=== PATIENT | female | born 1980 | race Caucasian/White ===

== ENCOUNTER → 2021-09-09 12:18 | Outpatient (CLI) | payer OTHER, MEDICAID, SELFPAY ==
[2021-09-09 12:56] LABS: Add Manual Diff / Slide Review NO; Basophils Absolute Auto 100 /uL (0-100); Basophils Percent Auto 1.1 % (0-2); Eosinophils Absolute Auto 100 /uL (0-450); Eosinophils Percent Auto 1.8 % (2-4); Hematocrit 38.6 % (36-46); Hemoglobin 13.2 g/dL (12.0-16.0); Lymphocytes Absolute Auto 1600 /uL (1100-4500); Lymphocytes Percent Auto 26.5 % (25-40); Mean Corpuscular HGB Conc 34.2 % (30-36); Mean Corpuscular Hemoglobin 30.6 PG (26-34); Mean Corpuscular Volume 89.3 fL (80-100); Monocytes Absolute Auto 400 /uL (0-900); Monocytes Percent Auto 5.8 % (3-14); Neutrophils Absolute Auto 4000 /uL (1500-7000); Neutrophils Percent Auto 64.8 % (50-75); Platelet Count 254 X10^3/uL (150-400); Red Blood Cell Count 4.32 X10^6/uL (4.0-5.2); Red Cell Distribution Width 13.7 % (11.6-14.8); White Blood Cell Count 6.2 X10^3/uL (4.5-11.0)
[2021-09-09 13:14] LABS: Alanine Aminotransferase 11 IU/L (<35); Albumin 4.2 g/dL (3.5-5.0); Albumin Globulin Ratio 1.5 (1.0-2.8); Alkaline Phosphatase 52 U/L (38-126); Aspartate Aminotransferase 22 IU/L (14-36); BUN Creatinine Ratio 17.9 (6-22); Bilirubin Total 0.4 mg/dL (0.2-1.3); Blood Urea Nitrogen 12 mg/dL (7-17); Calcium 8.7 mg/dL (8.4-10.2); Carbon Dioxide 28 mmol/L (22-32); Chloride 105 mmol/L (98-107); Cholesterol 251 mg/dL (140-199); Estimated Glomerular Filt Rate > 60 mL/min (>60); Globulin 2.8 g/dL (1.7-4.1); Glucose 99 mg/dL (70-100); HDL Cholesterol 50 mg/dL (40-60); HEMOLYSIS < 15 (0-50); LDL Cholesterol Calculated 177 mg/dL (<100); Potassium 4.1 mmol/L (3.4-5.1); Sodium 138 mmol/L (137-145); Triglycerides 119 mg/dL (35-150)
[2021-09-09 16:16] LABS: Vitamin D 25 Hydroxy (D3) 21.7 ng/mL (30.0-100.0)
== END ==
PROVIDERS: PCP Physician Assistant; Referring Provider Physician Assistant; Visit Provider Physician Assistant
DX: E55.9 Vitamin D deficiency, unspecified (principal); R63.5 Abnormal weight gain
CPT/HCPCS: 36415; 80053; 80061; 82306; 84443; 85025

== ENCOUNTER → 2021-09-18 10:08 | Outpatient (CLI) | payer OTHER, MEDICAID, SELFPAY ==
--- NOTE | 2021-09-18 | DI.US.S_ITS ---
PROCEDURE: US THYROID INDICATIONS: THYROID NODULE TECHNIQUE: Real-time scanning was performed of the thyroid gland, with image documentation. COMPARISON: None. FINDINGS: Right: Thyroid lobe measures 6.2 x 1.6 x 1.7 cm. Left: Thyroid lobe measures 6.1 x 1.9 x 1.8 cm.. Isthmus: 3.5 mm thick. Nodule number: 1 Location: Left mid thyroid Size: 0.5 x 0.4 x 0.5 cm. Composition: Solid Echogenicity: Hypoechoic Shape: wider than tall. Margins: Smooth Echogenic foci: 0 Total points: 4 ACR TI-RADS category: 4 Recommendations: No follow-up necessary based on size. Nodule number: 2 Location: Left mid/inferior thyroid Size: 2.1 x 1.2 x 1.5 cm. Composition: Predominantly cystic Echogenicity: Isoechoic and anechoic Shape: wider than tall. Margins: Smooth Echogenic foci: 0 Total points: 2 ACR TI-RADS category: 2 Recommendations: No follow-up necessary. Nodule number: 3 Location: Left inferior thyroid Size: 0.7 x 0.5 x 0.6 cm. Composition: Solid Echogenicity: Hypoechoic Shape: wider than tall. Margins: Smooth Echogenic foci: Punctate Total points: 7 ACR TI-RADS category: 5 Recommendations: Follow-up imaging Q year for 5 years. Nodule number: 4 Location: Right mid thyroid Size: 2.0 x 0.7 x 1.0 cm. Composition: Solid Echogenicity: Hypoechoic Shape: wider than tall. Margins: Smooth Echogenic foci: Punctate Total points: 7 ACR TI-RADS category: 5 Recommendations: Fine-needle aspiration. IMPRESSION: 1. Bilateral thyroid nodules as described above, with fine-needle aspiration and follow-up recommended as above . Dictated by: Adan Babcock M.D. on 09/18/2021 at 11:48 Approved by: Adan Babcock M.D. on 09/18/2021 at 16:54
== END ==
PROVIDERS: PCP Physician Assistant; Referring Provider Physician Assistant; Visit Provider Physician Assistant
DX: E04.2 Nontoxic multinodular goiter (principal)
CPT/HCPCS: 76536

== ENCOUNTER → 2021-10-01 14:00 | Outpatient (CLI) | payer OTHER, MEDICAID, SELFPAY ==
--- NOTE | 2021-10-01 | DI.MG.S_ITS ---
BILATERAL DIGITAL SCREENING MAMMOGRAM 3D/2D WITH CAD: 10/01/2021 CLINICAL: Baseline exam Routine screening. Family history of breast cancer. No prior exams were available for comparison. There are scattered fibroglandular elements in both breasts. Current study was also evaluated with a Computer Aided Detection (CAD) system. There is a 1.2 cm oval equal density mass in the right breast at 12 o'clock middle depth. No other significant masses, calcifications, or other findings are seen in either breast. IMPRESSION: INCOMPLETE: NEEDS ADDITIONAL IMAGING EVALUATION The 1.2 cm oval equal density mass in the right breast resembles a cyst or a fibroadenoma and is indeterminate. Additional views with possible ultrasound are recommended. This exam was interpreted at Station ID: [id number]. NOTE: For mammograms, a report in lay terms will be sent to the patient. Approximately 15% of breast malignancies will not be visualized mammographically. In the management of a palpable breast mass, a negative mammogram must not discourage biopsy of a clinically suspicious lesion. Electronically Signed By: Daniel carranza/geri:10/01/2021 16:01:44 letter sent: Additional Imaging Needed ACR BI-RADS Category 0: Incomplete [id number]
== END ==
PROVIDERS: PCP Physician Assistant; Referring Provider Physician Assistant; Visit Provider Physician Assistant
DX: Z12.31 Encounter for screening mammogram for malignant neoplasm of breast (principal); Z80.3 Family history of malignant neoplasm of breast
CPT/HCPCS: 77063; 77067

== ENCOUNTER 2021-10-02 08:26 | Emergency (ER) | payer OTHER, MEDICAID, SELFPAY ==
--- NOTE | 2021-10-02 08:38 | DI.CT.S_ITS ---
PROCEDURE: CT HEAD/BRAIN WO CON INDICATIONS: syncope, head injury, altered TECHNIQUE: Noncontrast 4.5 mm thick angled axial sections acquired from the foramen magnum to the vertex, with coronal and sagittal reformats. For radiation dose reduction, the following was used: automated exposure control, adjustment of mA and/or kV according to patient size. COMPARISON: None. FINDINGS: Image quality: Excellent. CSF spaces: Basal cisterns are patent. No extra-axial fluid collections. Ventricles are normal in size and shape. Brain: No midline shift. No intracranial masses or hemorrhage. Tenorio-white matter interface is normal. Skull and face: Calvarium and visualized facial bones are intact, without suspicious lesions. Sinuses: Visualized sinuses and mastoids are clear. IMPRESSION: No acute intracranial disease process. Dictated by: Imani Dumont MD, PhD on 10/02/2021 at 9:00 Approved by: Imani Dumont MD, PhD on 10/02/2021 at 9:01
--- NOTE | 2021-10-02 08:38 | DI.CT.S_ITS ---
PROCEDURE: CT CERVICAL SPINE WO CON INDICATIONS: syncope, head injury, altered TECHNIQUE: Noncontrast 3 mm thick sections acquired from the skull base to the T4 level. Sagittal and coronal reformats were then constructed. For radiation dose reduction, the following was used: automated exposure control, adjustment of mA and/or kV according to patient size. COMPARISON: [facility], , THYROID, 09/18/2021, 10:30. FINDINGS: Image quality: Excellent. Bones: No fractures or dislocations. Visualized superior ribs are intact. Spine degenerative disc disease and facet arthropathy. Soft tissues: Prevertebral soft tissues are normal in thickness. No paravertebral hematomas. No apical pneumothoraces. 1.5 centimeter hypoattenuating nodule in the left thyroid which is not significantly changed compared to prior ultrasound. IMPRESSION: No fracture. No acute osseous lesion. If symptoms and/or clinical suspicion for pathology persists, evaluation with MRI should be considered for further assessment. Dictated by: Imani Dumont MD, PhD on 10/02/2021 at 9:02 Approved by: Imani Dumont MD, PhD on 10/02/2021 at 9:07
--- NOTE | 2021-10-02 08:39 | ED_ITS ---
HPI - Syncope General Chief Complaint: Dizziness Stated Complaint: fainting spell this morning, hit head Time Seen by Provider: 10/02/21 08:30 History of Present Illness HPI narrative: 41-year-old female former smoker with history of persistently low blood pressure presents with a chief complaint of a syncopal episode this morning with associated head injury. She states that she has been in her normal state of health and felt fine when she went to bed last night and felt fine when she woke up this morning. She has had no fever chills, she denies any nausea, vomiting or diarrhea. Her last menstrual cycle was about 1 month ago and normal for her. She did start taking phentermine again a few weeks ago but otherwise denies any new medications or dietary change. She has had no nausea or vomiting, does not take blood thinners, she feels dizzy, has a headache and is a bit out of it but denies any focal neurologic findings or specific neck pain. She has no chest pain or shortness of breath. She had been seated for a bit of time and stood up and immediately felt lightheaded and then passed out, reports that she fell backwards and struck her head a cast iron stove and relatively quickly woke back up. Related Data Previous Rx's Medication Instructions Recorded clotrimazole 1 % topical cream 1 applic topical BID #90 grams 07/02/21 Allergies Allergy/AdvReac Type Severity Reaction Status Date / Time codeine AdvReac Intermediate Nausea Verified 07/02/21 12:39 Review of Systems Review of Systems Narrative: GENERAL: See HPI HEENT: Denies sinus pain, ear pain, sore throat, difficulty swallowing, dizziness. RESPIRATORY: Denies dyspnea, cough, wheezing, hemoptysis, sputum. CARDIOVASCULAR: Denies chest pain, palpitations, orthopnea, edema, GASTROINTESTINAL: Denies nausea, vomiting, abdominal pain, diarrhea, constipation, melena. : Denies dysuria, frequency, incontinence, hematuria, urinary retention. MUSCULOSKELETAL: denies weakness, joint pain, or bony pain SKIN: Denies rash, skin lesions, or other NEUROLOGIC: Denies weakness, headache, numbness, change in speech, confusion, seizures, incoordination. PSYCHIATRIC: No concerning psychosocial issues. 12 point review of systems is negative except for those stated above Patient History Social History Smoking Status: Current every day smoker Smoking Status: Former smoker Exam Narrative Exam Narrative: GENERAL: [41] year old patient appears stated age. Well-developed patient, in mild distress. GCS 14 (accurate but sluggish answers, confused?) HEAD: Very superficial abrasion on occiput, 0 evidence of repairable laceration or evidence of depressed skull fracture EYES: Pupils equal round and reactive. Extraocular motions intact. No scleral icterus. No injection or drainage. ENT: Nose without bleeding, purulent drainage. Throat without erythema, tonsillar hypertrophy or exudate. Airway patent. NECK: Trachea midline. Non tender CARDIOVASCULAR: Regular rate and rhythm without murmurs, gallops, or rubs. RESPIRATORY: Clear to auscultation. Breath sounds equal bilaterally. No wheezes, rales, or rhonchi. GASTROINTESTINAL: Abdomen soft, non-tender, nondistended. EXTREMITIES: No edema or joint tenderness. BACK: Nontender without deformity or crepitance. No flank tenderness. NEURO: AOx3. SKIN: No rash or erythema of visible areas Initial Vital Signs Initial Vital Signs: Vital Signs Temperature 98.4 F 10/02/21 09:03 Pulse Rate 88 10/02/21 09:03 Respiratory Rate 18 10/02/21 09:03 Blood Pressure 120/82 10/02/21 09:03 Pulse Oximetry 100 10/02/21 09:03 Oxygen Delivery Method 10/02/21 09:03 Course Orders Ordered: ED Orders 10/02/21 08:38 CT cervical spine wo con Stat CT head/brain wo con Stat EKG-12 Lead Stat 10/02/21 09:00 Complete Blood Count AUTO DIFF Stat Comprehensive Metabolic Panel Stat Magnesium Stat 10/02/21 10:25 Urinalysis and Microscopic Stat Discontinued Medications Sodium Chloride (Normal Saline 0.9%) 1,000 mls @ 1,000 mls/hr IV BOLUS ONE Stop: 10/02/21 09:36 Last Infusion: 10/02/21 11:26 Dose: 0 mls/hr Documented By: Admin: 10/02/21 09:45 Dose: 1,000 mls/hr Documented By: AMEENA(2) Ketorolac Tromethamine (Ketorolac 30 Mg/Ml Vial) 15 mg IV NOW ONE Stop: 10/02/21 09:08 Last Admin: 10/02/21 09:46 Dose: 15 mg Documented By: AMEENA(2) Ondansetron HCl (Ondansetron 4 Mg/2 Ml Inj) 4 mg IV NOW ONE Stop: 10/02/21 09:08 Last Admin: 10/02/21 09:46 Dose: 4 mg Documented By: AMEENA(2) Vital Signs Vital signs: Vital Signs - 8 hr 10/02/21 09:03 10/02/21 09:11 10/02/21 10:04 Temperature 98.4 F Pulse Rate 88 93 H Pulse Rate [Orthostatic Lying] 80 Pulse Rate [Orthostatic Sitting] 92 H Pulse Rate [Orthostatic Standing] 113 H Respiratory Rate 18 18 Blood Pressure 120/82 120/82 Blood Pressure [Orthostatic Lying] 111/60 Blood Pressure [Orthostatic Sitting] 110/68 Blood Pressure [Orthostatic Standing] 109/78 Pulse Oximetry 100 99 Oxygen Delivery Method Room Air Room Air 10/02/21 11:28 Temperature Pulse Rate 70 Pulse Rate [Orthostatic Lying] Pulse Rate [Orthostatic Sitting] Pulse Rate [Orthostatic Standing] Respiratory Rate 16 Blood Pressure 111/61 Blood Pressure [Orthostatic Lying] Blood Pressure [Orthostatic Sitting] Blood Pressure [Orthostatic Standing] Pulse Oximetry 99 Oxygen Delivery Method Room Air MDM - Syncope Lab Data Result diagrams: 10/02/21 09:00 10/02/21 09:00 Labs: Lab Results 10/02/21 10/02/21 10/02/21 Range/Units 09:00 09:00 10:25 WBC 5.4 (4.5-11.0) X10^3/uL RBC 4.51 (4.0-5.2) X10^6/uL Hgb 13.7 (12.0-16.0) g/dL Hct 40.5 (36-46) % MCV 89.7 (80-100) fL MCH 30.4 (26-34) PG MCHC 33.8 (30-36) % RDW 13.4 (11.6-14.8) % Plt Count 214 (150-400) X10^3/uL Neut % (Auto) 66.8 (50-75) % Lymph % (Auto) 24.0 L (25-40) % Jasper % (Auto) 6.4 (3-14) % Eos % (Auto) 1.8 L (2-4) % Baso % (Auto) 1.0 (0-2) % Neut # (Auto) 3600 (9144-3144) /uL Lymph # (Auto) 1300 (0459-2231) /uL Jasper # (Auto) 300 (0-900) /uL Eos # (Auto) 100 (0-450) /uL Baso # (Auto) 100 (0-100) /uL Sodium 138 (137-145) mmol/L Potassium 3.8 (3.4-5.1) mmol/L Chloride 106 (98-107) mmol/L Carbon Dioxide 25 (22-32) mmol/L BUN 12 (7-17) mg/dL Creatinine 0.84 (0.52-1.04) mg/dL Estimated GFR > 60 (>60) mL/min BUN/Creatinine Ratio 14.3 (6-22) Glucose 100 (70-100) mg/dL Calcium 8.7 (8.4-10.2) mg/dL Magnesium 2.2 (1.6-2.3) mg/dL Total Bilirubin 0.4 (0.2-1.3) mg/dL AST 20 (14-36) IU/L ALT 9 (<35) IU/L Alkaline Phosphatase 47 (38-126) U/L Total Protein 7.0 (6.3-8.2) g/dL Albumin 4.2 (3.5-5.0) g/dL Globulin 2.8 (1.7-4.1) g/dL Albumin/Globulin Ratio 1.5 (1.0-2.8) Urine Color Yellow Urine Appearance Clear Urine pH 6.5 (4.5-8.0) Ur Specific Josephine <=1.005 (1.000-1.035) Urine Protein Negative (Negative) Urine Glucose (UA) Negative (Negative) g/dL Urine Ketones Negative (NEGATIVE) Urine Occult Blood Negative (Negative) Urine Nitrate Negative (Negative) Urine Bilirubin Negative (NEGATIVE) Urine Urobilinogen 0.2 (0.2) E.U./dL Ur Leukocyte Esterase Negative (NEGATIVE) Urine RBC 0-1/hpf (0-5/HPF) Urine WBC 0-1/hpf (0-5/HPF) Ur Squamous Epith Cells 1-5 /hpf (0-5/HPF) Urine Bacteria Occasional (0-1) (None) Ur Culture Indicated? Cult not indicated Point of Care Testing Test Results Negative Urine Dip Bedside Urine Glucose Negative Bedside Urine Bilirubin - Negative Bedside Urine Ketone - Negative Urine Specific Josephine 1.010 Bedside Urine Occult Blood - Negative Bedside Urine pH 6.5 Bedside Urine Protein - Negative Bedside Urine Urobilinogen 0.2 Bedside Urine Nitrite - Negative Bedside Urine Leukocytes - Negative Esterase Imaging Data CT scan - head: Radiologist's Impression: [address] [address] [address] Scan Report Signed Patient: Eb Sargent MR#: [id number] : 1980 Acct:[id number] Age/Sex: 41 / F Date of Service: 10/02/21 Loc: ED Accession Number: [id number] ?? Procedure: CT head/brain wo con Ordering Provider: Wai Denis D.O. PROCEDURE:? CT HEAD/BRAIN WO CON ? INDICATIONS:? syncope, head injury, altered ? TECHNIQUE:? Noncontrast 4.5 mm thick angled axial sections acquired from the foramen magnum to the vertex, with coronal and sagittal reformats.? For radiation dose reduction, the following was used:? automated exposure control, adjustment of mA and/or kV according to patient size.? ? COMPARISON:? None. ? FINDINGS:? Image quality:? Excellent.? ? CSF spaces:? Basal cisterns are patent.? No extra-axial fluid collections.? Ventricles are normal in size and shape.? ? Brain:? No midline shift.? No intracranial masses or hemorrhage.? Tenorio-white matter interface is normal.? ? Skull and face:? Calvarium and visualized facial bones are intact, without suspicious lesions.? ? Sinuses:? Visualized sinuses and mastoids are clear.? ? IMPRESSION:? No acute intracranial disease process. ? ? Dictated by: Imani Dumont MD, PhD on 10/02/2021 at 9:00 ? ? Approved by: Imani Dumont MD, PhD on 10/02/2021 at 9:01 ? CT - cervical spine: Radiologist's Impression: Close Head CT (Signed) Imani Dumont - 10/02/[address] (Signed) Imain Dumont - 10/02/21 Mammogram Screening 10/01/21 Thyroid Ultrasound (Signed) Adan Babcock - 09/18/21 Launch?Image [address] [address] [address] Scan Report Signed Patient: Eb Sargent MR#: [id number] : 1980 Acct:[id number] Age/Sex: 41 / F Date of Service: 10/02/21 Loc: ED Accession Number: [id number] ?? Procedure: CT cervical spine wo con Ordering Provider: Wai Denis D.O. PROCEDURE:? CT CERVICAL SPINE WO CON ? INDICATIONS:? syncope, head injury, altered ? TECHNIQUE:? Noncontrast 3 mm thick sections acquired from the skull base to the T4 level.? Sagittal and coronal reformats were then constructed.? For radiation dose reduction, the following was used:? automated exposure control, adjustment of mA and/or kV according to patient size.? ? COMPARISON:? [facility], THYROID, 09/18/2021, 10:30. ? FINDINGS:? Image quality:? Excellent.? ? Bones:? No fractures or dislocations.? Visualized superior ribs are intact. Spine degenerative disc disease and facet arthropathy. ?? Soft tissues:? Prevertebral soft tissues are normal in thickness.? No parav ertebral hematomas.? No apical pneumothoraces. 1.5 centimeter hypoattenuating nodule in the left thyroid which is not significantly changed compared to prior ultrasound. ? ? IMPRESSION:? ? No fracture. No acute osseous lesion. If symptoms and/or clinical suspicion for pathology persists, evaluation with MRI should be considered for further assessment. ? ? ? Dictated by: Imani Dumont MD, PhD on 10/02/2021 at 9:02 ? ? Approved by: Imani Dumont MD, PhD on 10/02/2021 at 9:07 ? Discharge Plan Departure Patient Disposition: Home Clinical Impression: Orthostatic hypotension, Concussion Instructions: DI for Concussion, Orthostatic Hypotension Activity Restrictions/Additional Instructions: *You have been diagnosed with [syncopal episode, likely due to change in position. Also presence of moderate concussion, as we discussed your CT scan is reassuring there is no evidence of bleeding in the brain or fracture.] *What to do: *Please continue to take your regular medications as directed. [ ] New medication prescriptions sent to your pharmacy: [ ] [ ] New medication written as a paper prescription [x ] No new medications given * You have a slight concussion and will likely have a mild headache and some nausea for a few days. Avoiding highly stimulating activities and even TV or computers may be helpful in minimizing your symptoms. Avoid activities that will put you at risk for another head injury for at least a week. You can take tyle nol or motrin for headacheReturn for worsening or persistent symptoms *If you do not have a primary care provider please contact the [facility] Resource line at [phone]. They will ask some questions about your medical history and help get you set up with a doctor in the community. *Return to Emergency Department if you should have any new, worsening or concerning symptoms, such as [fever greater than 101 F, shaking chills, worsening pain, persistent vomiting or other bothersome symptoms] Prescriptions: No Action clotrimazole 1 % cream 1 applic topical BID Qty: 90 0RF Rx Instructions: Use until rash completely subsides Referrals: Deandra Boyd PA-C [Primary Care Provider] - Visit Report Forms: Patient Portal/API
[2021-10-02 09:03] VITALS: BP 120/82; PULSE 88; RESP 18; TEMP 36.9; O2SAT 100; BMI 28.0
[2021-10-02 09:07] LABS: Add Manual Diff / Slide Review NO; Basophils Absolute Auto 100 /uL (0-100); Eosinophils Absolute Auto 100 /uL (0-450); Eosinophils Percent Auto 1.8 % (2-4); Hematocrit 40.5 % (36-46); Hemoglobin 13.7 g/dL (12.0-16.0); Lymphocytes Absolute Auto 1300 /uL (1100-4500); Mean Corpuscular HGB Conc 33.8 % (30-36); Mean Corpuscular Hemoglobin 30.4 PG (26-34); Mean Corpuscular Volume 89.7 fL (80-100); Monocytes Absolute Auto 300 /uL (0-900); Monocytes Percent Auto 6.4 % (3-14); Neutrophils Absolute Auto 3600 /uL (1500-7000); Neutrophils Percent Auto 66.8 % (50-75); Platelet Count 214 X10^3/uL (150-400); Red Blood Cell Count 4.51 X10^6/uL (4.0-5.2); Red Cell Distribution Width 13.4 % (11.6-14.8); White Blood Cell Count 5.4 X10^3/uL (4.5-11.0)
[2021-10-02 09:11] VITALS: BP 120/82; PULSE 93; RESP 18; O2SAT 99
[2021-10-02 09:40] LABS: Alanine Aminotransferase 9 IU/L (<35); Albumin 4.2 g/dL (3.5-5.0); Albumin Globulin Ratio 1.5 (1.0-2.8); Alkaline Phosphatase 47 U/L (38-126); Aspartate Aminotransferase 20 IU/L (14-36); BUN Creatinine Ratio 14.3 (6-22); Bilirubin Total 0.4 mg/dL (0.2-1.3); Blood Urea Nitrogen 12 mg/dL (7-17); Calcium 8.7 mg/dL (8.4-10.2); Carbon Dioxide 25 mmol/L (22-32); Chloride 106 mmol/L (98-107); Estimated Glomerular Filt Rate > 60 mL/min (>60); Globulin 2.8 g/dL (1.7-4.1); Glucose 100 mg/dL (70-100); HEMOLYSIS < 15 (0-50); Magnesium 2.2 mg/dL (1.6-2.3); Potassium 3.8 mmol/L (3.4-5.1); Sodium 138 mmol/L (137-145)
[2021-10-02] MEDS: SODIUM CHLORIDE 0.9% 1,000 ML 1000 ML IV (09:45)
[2021-10-02] MEDS: KETOROLAC 30 MG/ML VIAL 15 MG IV (09:46)
[2021-10-02] MEDS: ONDANSETRON 4 MG/2 ML INJ IV (09:46)
[2021-10-02 10:04] VITALS: BP 109/78; BP 110/68; BP 111/60; PULSE 113; PULSE 80; PULSE 92
[2021-10-02 10:33] LABS: Appearance Urine UA CLEAR; Bilirubin Urine UA NEGATIVE (NEGATIVE); Color Urine UA YELLOW; Glucose Urine UA NEGATIVE (Negative); Ketones Urine UA NEGATIVE (NEGATIVE); Leukocyte Esterase Urine UA NEGATIVE (NEGATIVE); Nitrite Urine UA NEGATIVE (Negative); Occult Blood Urine UA NEGATIVE (Negative); Protein Urine UA NEGATIVE (Negative); Specific Gravity Urine UA <=1.005 (1.000-1.035); Urobilinogen Urine UA 0.2 E.U./dL (0.2)
[2021-10-02 10:44] LABS: RBC Urine 0-1/HPF (0-5/HPF); Squamous Epithelial Cell Urine 1-5 /HPF (0-5/HPF); WBC Urine 0-1/HPF (0-5/HPF); pH Urine UA 6.5 (4.5-8.0)
[2021-10-02 10:45] LABS: Bacteria Urine Occasional (0-1); Culture Indicated Urine Cult Not Indicated
[2021-10-02 11:28] VITALS: BP 111/61; PULSE 70; RESP 16; O2SAT 99
== END 2021-10-02 11:28 | disposition home or self-care (01) ==
PROVIDERS: Emergency Provider Emergency Medicine; PCP Physician Assistant
DX: I95.1 Orthostatic hypotension (principal); S06.0X0A Concussion without loss of consciousness, initial encounter; R42 Dizziness and giddiness
CPT/HCPCS: 36415; 70450; 72125; 80053; 81001; 81003; 81025; 83735; 85025; 93005; 93010; 96361; 96374; 96375; 99284; J1885; J2405

== ENCOUNTER → 2021-10-07 11:34 | Outpatient (CLI) | payer OTHER, MEDICAID, SELFPAY ==
--- NOTE | 2021-10-07 | DI.RAD.S_ITS ---
PROCEDURE: XR WRIST RT MIN 3V INDICATIONS: right wrist pain TECHNIQUE: 4 views of the wrist were acquired. COMPARISON: None. FINDINGS: Bones: No acute fractures or dislocations. No suspicious bony lesions. Scaphoid view: No scaphoid fracture visualized. Soft tissues: No suspicious soft tissue calcifications. IMPRESSION: No acute osseous abnormality visualized. Dictated by: Shaka Marrero M.D. on 10/07/2021 at 14:24 Approved by: Shaka Marrero M.D. on 10/07/2021 at 14:27
== END ==
PROVIDERS: PCP Physician Assistant; Referring Provider Physician Assistant; Visit Provider Physician Assistant
DX: M25.531 Pain in right wrist (principal)
CPT/HCPCS: 73110

== ENCOUNTER → 2021-10-28 07:42 | Outpatient (CLI) | payer OTHER, MEDICAID, SELFPAY ==
--- NOTE | 2021-10-28 | PATH_ITS ---
Note [facility] Accession Number: [id number] TESTS RESULT FLAG UNITS REF RANGE LAB Clinician Provided Cytology Information No. of containers..00 Previously Prepared Cytology Slide 35 Unknown Storage/container code(s) Source: LEFT THYROID NODULE DIAGNOSIS: LEFT THYROID NODULE INCONCLUSIVE. BETHESDA CATEGORY III. ATYPIA OF UNDETERMINED SIGNIFICANCE. MOLECULAR STUDIES REQUESTED ON THE PROVIDED RNA VIAL. COMMENT: Rare follicular cell groups, predominantly benign-appearing, with focal cytologic atypia. Pathologist ICD10: R89.6 Signed out by: Jayla Bolton MD, Pathologist NPI- [id number] Performed by: Lia Pearce, Reservations And Ticketing Agent ([facility]) Gross description: 30 CC, PINK, CLEAR RECIEVED: IN CYTOLYT WITH 5 ALCOHOL FIXED AND 5 QUICK STAINED SLIDES ALSO 1 RNA VIAL WAS RECEIVED. /VDU 10/29/2021 0927 Local FLAG LEGEND: L-Low Normal,H-High Normal,LL-Alert Low,HH-Alert High <-Panic Low,>-Panic High,A-Abnormal,AA-Critical Abnormal Performed at: 01 =[facility] [address], [place] [address] Alfred Cedillo MD, Performed at: 01 [facility] [address], [place], [place] [id number] MD Alfred Cedillo MD Phone: [phone]
--- NOTE | 2021-10-28 | DI.US.S_ITS ---
PROCEDURE: US FINE NEEDLE ASPIRATION INDICATIONS: NODULES TECHNIQUE: The indications, alternatives, benefits, risks, and complications of the procedure were explained to the patient. Written informed consent was obtained and placed in the chart. The thyroid region was examined sonographically and a site was chosen for ultrasound guided percutaneous sampling. The skin was prepared and draped in the usual fashion, and anesthetized with 1% lidocaine infiltrated from the skin down to the thyroid gland. Multiple passes were then performed, with contents emptied into an appropriate pathology specimen container. A bandage was applied to the area of access at completion of the study. COMPARISON: [facility], US, US THYROID, 09/18/2021, 10:30. FINDINGS: Location(s) of lesion(s) sampled: Using numbering from the prior thyroid ultrasound, Left mid-inferior lobe (nodule #2), right mid lobe (nodule #4). Union: 25 gauge hypodermic needles. A 24 g spinal needle was used for one pass of the left nodule. Number of passes: 5 for each nodule Medications: 1% lidocaine for local anaesthesia. Complications: None. IMPRESSION: 1. Ultrasound-guided thyroid nodule fine needle aspiration, with cytology results pending. Please see chart below for management recommendations based on cytology results. 2. Preliminary cytology results of the mostly cystic left nodule were consistent with fluid and debris. Given the mostly cystic appearance of the nodule without highly suspicious features, additional passes were not performed. This nodule can be followed on future follow-up exams. [facility] ReportingRecommendationsNon-diagnostic* Repeat US-guided FNA, with on-site cytology evaluation if possible. * Repeated non-diagnostic nodules without high suspicion US features: close observation vs surgical consult. * Consider surgery if nodule has high suspicion US features, grows >20% in 2 dimensions on followup, or patient has clinical risk factors for malignancy. Benign* If nodule has high suspicion US features: repeat US and FNA within 12 months. * If nodule has low to intermediate suspicion US features: repeat US at 12-24 months. If nodule grows (20% increase in at least 2 dimensions, with minimal increase of 2 mm or >50% change in volume), or development of new suspicious US features, then repeat FNA or continue followup. * If nodule has very low suspicion US features: followup US at >24 months. Atypia of undetermined significance, follicular lesion of undetermined significanceRepeat FNA, molecular testing, followup US, or surgical consult.Follicular neoplasm, suspicious for follicular neoplasmSurgical consult; also consider molecular testing. Suspicious for malignancySurgical consult.MalignantSurgical consult. Dictated by: Shaka Marrero M.D. on 10/28/2021 at 10:17 Approved by: Shaka Marrero M.D. on 10/28/2021 at 10:28
--- NOTE | 2021-10-28 | PATH_ITS ---
Note [facility] Accession Number: [id number] TESTS RESULT FLAG UNITS REF RANGE LAB Clinician Provided Cytology Information No. of containers..00 Previously Prepared Cytology Slide 35 Unknown Storage/container code(s) Source: RIGHT THYROID NODULE #4 DIAGNOSIS: RIGHT THYROID NODULE #4 NEGATIVE FOR MALIGNANT CELLS. BETHESDA CATEGORY II. SPECIMEN CONSISTS OF BENIGN FOLLICULAR CELLS, HEMOSIDERIN-LADEN MACROPHAGES, COLLOID, AND BLOOD. THIS PATTERN IS CONSISTENT WITH A COLLOID NODULE. Pathologist ICD10: 01 E04.1 Signed out by: Jayla Bolton MD, Pathologist NPI- [id number] Performed by: Lia Pearce, Human Resources Designate ([facility]) Gross description: 30 CC, RED, CLOUDY RECIEVED: IN CYTOLYT WITH 5 ALCOHOL FIXED AND 5 QUICK STAINED SLIDES ALSO 1 RNA VIAL WAS RECEIVED. /VDU 10/29/2021 09 Local FLAG LEGEND: L-Low Normal,H-High Normal,LL-Alert Low,HH-Alert High <-Panic Low,>-Panic High,A-Abnormal,AA-Critical Abnormal Performed at: 01 =[facility] [address], [place] [address] Alfred Cedillo MD, Performed at: 01 [facility] [address], [place], [place] [id number] MD Alfred Cedillo MD Phone: [phone]
== END ==
PROVIDERS: PCP Physician Assistant; Referring Provider Physician Assistant; Visit Provider Physician Assistant
DX: E04.2 Nontoxic multinodular goiter (principal)
CPT/HCPCS: 10005; 10006

== ENCOUNTER → 2021-11-11 08:48 | Outpatient (CLI) | payer OTHER, MEDICAID, SELFPAY ==
--- NOTE | 2021-11-11 | DI.MG.S_ITS ---
UNILATERAL RIGHT DIGITAL DIAGNOSTIC MAMMOGRAM 3D/2D WITH ADDITIONAL VIEWS: 11/11/2021 CLINICAL: Additional evaluation requested from prior study. Comparison is made to exam dated: 10/01/2021 mammogram - [facility]. There are scattered fibroglandular elements in right breast. There is a possible mass in the right breast at 12 o'clock middle depth. This is less prominent. No other significant masses or calcifications are seen in the breast. IMPRESSION: INCOMPLETE: NEEDS ADDITIONAL IMAGING EVALUATION Possible mass in the right breast is indeterminate. A targeted ultrasound is recommended and will immediately follow. Based on the Tyrer Cuzick model (a risk assessment model) the patient's lifetime risk is 8.7% and her 10 year risk is 1.2%. According to the ACR, ACS, and NCCN guidelines, an annual breast MRI exam along with mammogram is recommended if the patient's lifetime risk is 20% or greater. This exam was interpreted at Station ID: [id number]. NOTE: For mammograms, a report in lay terms will be sent to the patient. Approximately 15% of breast malignancies will not be visualized mammographically. In the management of a palpable breast mass, a negative mammogram must not discourage biopsy of a clinically suspicious lesion. Electronically Signed By: Alna Brown M.D. slc/:11/11/2021 09:44:32 ACR BI-RADS Category 0: Incomplete [id number]
--- NOTE | 2021-11-11 | DI.US.S_ITS ---
LIMITED ULTRASOUND OF RIGHT BREAST: 11/11/2021 CLINICAL: Patient returns today to evaluate an asymmetry in the right breast. Comparison is made to exams dated: 10/01/2021 mammogram and 11/11/2021 mammogram - [facility]. Color flow and real-time ultrasound of the right breast 11-12 o'clock region were performed. Tenorio scale images of the real-time examination were reviewed. There is a 1 cm x 1 cm x 0.6 cm oval cyst with a septated internal wall in the right breast at 12 o'clock middle depth 5 cm from the nipple. This oval cyst is anechoic. This correlates with mammography findings. Color flow imaging demonstrates that there is no vascularity present. There also is a benign 0.7 cm x 0.4 cm x 0.3 cm oval cyst in the right breast at 11 o'clock middle depth 5 cm from the nipple. This oval cyst is anechoic with posterior acoustic enhancement. This correlates as an incidental finding. Color flow imaging demonstrates that there is no vascularity present. IMPRESSION: PROBABLY BENIGN The 1 cm oval cyst in the right breast at 12 o'clock middle depth is consistent with a complicated cyst and is probably benign. The 0.7 cm oval cyst in the right breast at 11 o'clock middle depth is benign. A follow-up mammogram and an ultrasound in 6 months is recommended to demonstrate stability. Exam findings were conveyed to the patient. This exam was interpreted at Station ID: [id number]. Electronically Signed By: Alan Brown M.D. slc/:11/11/2021 09:52:00 letter sent: Followup Recommended Ultrasound BI-RADS: 3 Probably benign
== END ==
PROVIDERS: PCP Physician Assistant; Referring Provider Physician Assistant; Visit Provider Physician Assistant
DX: R92.2 Inconclusive mammogram (principal); N60.01 Solitary cyst of right breast
CPT/HCPCS: 76642; 77065; G0279

== ENCOUNTER 2021-11-24 08:32 | Emergency (ER) | payer OTHER, MEDICAID, SELFPAY ==
[2021-11-24] VITALS (11 sets, daily range): BP systolic 102–121; BP diastolic 60–73; PULSE 72–111; RESP 15–20; TEMP 36.9; O2SAT 96–100; BMI 26.9
--- NOTE | 2021-11-24 09:35 | DI.US.S_ITS ---
PROCEDURE: US THYROID INDICATIONS: thyroid nodule, acute pain TECHNIQUE: Real-time scanning was performed of the thyroid gland, with image documentation. COMPARISON: [facility], US, US THYROID, 09/18/2021, 10:30. FINDINGS: Right: Thyroid lobe measures 6.3 x 2.2 x 1.8 cm, and is homogeneous in echotexture. Slightly increased vascularity. Left: Thyroid lobe measures 5.7 x 1.8 x 2.0 cm, and is homogenous in echotexture. Isthmus: 2.9 mm thick. Nodule number: Location: Left mid Size: 5 x 4 x 4 mm, previously 5 x 5 x 4 mm. Composition: Solid Echogenicity: Hypoechoic Shape: Wider than tall Margins: Smooth Echogenic foci: None Total points: 4 ACR TI-RADS category: 4 Nodule number: 2 Location: Left mid thyroid lobe Size: 2.0 x 1.5 x 1.5 cm, previously 2.1 x 1.5 x 1.2 cm Composition: Predominantly cystic Echogenicity: Anechoic to isoechoic Shape: Wider than tall Margins: Smooth Echogenic foci: None Total points: 1 ACR TI-RADS category: 1 Nodule number: 3 Location: Left inferior and lateral thyroid lobe Size: 8 x 7 x 6 mm, previously 7 x 6 x 5 mm. Composition: Solid Echogenicity: Hypoechoic Shape: Wider than tall Margins: Smooth Echogenic foci: None Total points: 4 ACR TI-RADS category: 4 Nodule number: 4 Location: Right thyroid lobe superior to mid Size: 1.9 x 0.9 x 0.8 cm, previously 2.1 x 1.0 x 0.7 cm. Composition: Solid Echogenicity: Hypoechoic Shape: wider than tall Margins: Smooth Echogenic foci: Punctate Total points: 7 ACR TI-RADS category: 5 IMPRESSION: Slightly increased vascularity of the right thyroid lobe may represent inflammation from recent procedure versus thyroiditis. Multiple thyroid nodules as above. Right thyroid lobe nodule meets criteria for biopsy. This was reportedly done. Recommend correlation with results. ACR TI-RADS definitions and recommendations: TI-RADS 1 (benign): 0 points. FNA not needed. TI-RADS 2 (not suspicious): 2 points. FNA not needed. TI-RADS 3 (mildly suspicious): 3 points. * FNA if 2.5 cm or larger, follow up if 1.5 cm or larger (at 1, 3, and 5 years). TI-RADS 4 (moderately suspicious): 4-6 points. * FNA if 1.5 cm or larger, follow up if 1 cm or larger (at 1, 2, 3, and 5 years). TI-RADS 5 (highly suspicious): 7 points or more. * FNA if 1 cm or larger, follow up if 0.5 cm or larger (every year for 5 years). Dictated by: Ruben Martin D.O. on 11/24/2021 at 10:12 Approved by: Ruben Martin D.O. on 11/24/2021 at 10:21
--- NOTE | 2021-11-24 09:37 | ED.HA ---
HPI - Headache General Chief Complaint: Headache Stated Complaint: shaking, head & ear pain, thyroid surgery on 01/07 Time Seen by Provider: 11/24/21 08:40 Mode of arrival: Ambulatory History of Present Illness HPI Narrative: This 41-year-old woman comes to the ER today because of left neck and ear pain. She has been treated for thyroid nodules for some time including a fine-needle aspirate in the middle of October. She says since the FNA she has had much worse left neck pain and also this pain radiates to her left ear and is severe and intolerable. She says the pain is not improved with Tylenol. She says she was told by the surgeon who has a planned thyroidectomy for early December to not take NSAIDs. No definitive thyroid diagnosis is yet made. She does not take thyroid hormone supplementation. She says she has some endometrial polyps and she also has some chronic back pain. She vapes nicotine. No fever or chills, no nausea or vomiting. Related Data Home Medications Medication Instructions Recorded Confirmed cholecalciferol (vitamin D3) 1,250 1,250 mcg PO QWEEK 11/12/21 11/21/21 mcg (50,000 unit) capsule phentermine 37.5 mg capsule 37.5 mg PO DAILY 11/12/21 11/21/21 Previous Rx's Medication Instructions Recorded fluconazole 150 mg tablet 150 mg PO ONCE #1 tab 11/12/21 (Diflucan) Allergies Allergy/AdvReac Type Severity Reaction Status Date / Time codeine AdvReac Intermediate Nausea Verified 11/21/21 09:15 Review of Systems Review of Systems Narrative: Complete review of systems is negative other than as noted above Patient History Medical History Abnormal Pap smear of cervix (~2001) Chicken pox (~1986) COVID-19 (~2021) Foot pain (~1999) Low blood pressure Menorrhagia (~2020) Ovarian cyst (~2001) Shoulder pain (~1999) Surgical History Anesthesia History of dilatation and curettage S/P wisdom tooth extraction Status post section Family History Father Skin cancer Prostate cancer Sister Mental health problem Grandfather Cancer Grandmother Cancer Grandfather Cancer Diabetes mellitus Grandmother Mental health problem Social History Smoking Status: Current every day smoker Smoking Status: Current every day smoker tobacco type: vaping alcohol intake frequency: other Substance Use Type: does not use Exam Narrative Exam Narrative: GENERAL: Alert, cooperative and in no distress. HEAD: Atraumatic. Normocephalic. EYES: Sclera are clear without icterus. Extraocular movements are full. ENT: No rhinorrhea. Oropharynx is moist. Mouth exam is benign. No palpable thyroid nodule. To visual inspection the left side of the neck seems slightly more prominent. NECK: Supple. Full range of motion. CARDIOVASCULAR: Normal rate and rhythm without murmur gallop or rub. RESPIRATORY: Clear to auscultation. Breath sounds equal bilaterally. No wheezes, rales, or rhonchi. GASTROINTESTINAL: Abdomen soft, non-tender, nondistended. EXTREMITIES: No edema, full range of motion. No obvious trauma. BACK: Normal inspection, no CVA tenderness. NEURO: Nonfocal examination, normal speech, normal gait. SKIN: No rash or erythema of visible areas PSYCH: Normally oriented. Normal range of affect. Appropriate behavior Initial Vital Signs Initial Vital Signs: Vital Signs Temperature 98.5 F 11/24/21 08:32 Pulse Rate 103 H 11/24/21 08:32 Respiratory Rate 18 11/24/21 08:32 Blood Pressure 121/73 11/24/21 08:32 Pulse Oximetry 96 11/24/21 08:32 Oxygen Delivery Method 11/24/21 08:32 Course Course Course Narrative: Neck pain with known thyroid nodules and scheduled elective thyroidectomy coming up in a few weeks. FNA done about 3 weeks ago. She had trauma to the head and neck about [address] imaging at that time. Will do evaluation for her tachycardia with TSH and basic labs, we will also do IV hydration and Toradol. Will get an ultrasound today. Orders Ordered: ED Orders 11/24/21 09:35 US thyroid Stat 11/24/21 09:50 CBC Auto Diff [Complete Blood Count AUTO DIFF] Stat CMP [Comprehensive Metabolic Panel] Stat TSH [Thyroid Stimulating Hormone] Stat Discontinued Medications Sodium Chloride (Normal Saline 0.9%) 1,000 mls @ 1,000 mls/hr IV BOLUS ONE Stop: 11/24/21 10:34 Last Infusion: 11/24/21 11:47 Dose: 0 mls/hr Documented By: Admin: 11/24/21 10:28 Dose: 1,000 mls/hr Documented By: LAKHWINDER Ketorolac Tromethamine (Ketorolac 30 Mg/Ml Vial) 15 mg IV NOW ONE Stop: 11/24/21 09:36 Last Admin: 11/24/21 10:29 Dose: 15 mg Documented By: LAKHWINDER Vital Signs Vital signs: Vital Signs - 8 hr 11/24/21 08:32 11/24/21 08:41 11/24/21 08:45 Temperature 98.5 F Pulse Rate 103 H 111 H 104 H Respiratory Rate 18 19 Blood Pressure 121/73 Pulse Oximetry 96 96 96 Oxygen Delivery Method Room Air 11/24/21 08:45 11/24/21 09:00 11/24/21 09:00 Temperature Pulse Rate 95 H Respiratory Rate 15 Blood Pressure 121/73 118/70 Pulse Oximetry 98 Oxygen Delivery Method 11/24/21 09:30 11/24/21 09:30 11/24/21 10:00 Temperature Pulse Rate 83 Respiratory Rate 18 Blood Pressure 109/69 109/65 Pulse Oximetry 98 Oxygen Delivery Method 11/24/21 10:00 11/24/21 10:30 11/24/21 10:30 Temperature Pulse Rate 80 80 Respiratory Rate 16 20 Blood Pressure 109/66 Pulse Oximetry 99 100 Oxygen Delivery Method 11/24/21 11:00 Temperature Pulse Rate 72 Respiratory Rate 18 Blood Pressure Pulse Oximetry 100 Oxygen Delivery Method MDM - Headache Lab Data Result diagrams: 11/24/21 09:50 11/24/21 09:50 Labs: Lab Results 11/24/21 11/24/21 11/24/21 Range/Units 09:50 09:50 09:50 WBC 6.5 (4.5-11.0) X10^3/uL RBC 4.22 (4.0-5.2) X10^6/uL Hgb 12.9 (12.0-16.0) g/dL Hct 37.7 (36-46) % MCV 89.3 (80-100) fL MCH 30.5 (26-34) PG MCHC 34.2 (30-36) % RDW 14.0 (11.6-14.8) % Plt Count 242 (150-400) X10^3/uL Neut % (Auto) 71.7 (50-75) % Lymph % (Auto) 20.3 L (25-40) % [place] % (Auto) 5.6 (3-14) % Eos % (Auto) 1.7 L (2-4) % Baso % (Auto) 0.7 (0-2) % Neut # (Auto) 4700 (3167-5491) /uL Lymph # (Auto) 1300 (1599-7499) /uL [place] # (Auto) 400 (0-900) /uL Eos # (Auto) 100 (0-450) /uL Baso # (Auto) 0 (0-100) /uL Sodium 138 (137-145) mmol/L Potassium 3.7 (3.4-5.1) mmol/L Chloride 107 (98-107) mmol/L Carbon Dioxide 28 (22-32) mmol/L BUN 11 (7-17) mg/dL Creatinine 0.69 (0.52-1.04) mg/dL Estimated GFR > 60 (>60) mL/min BUN/Creatinine Ratio 15.9 (6-22) Glucose 98 (70-100) mg/dL Calcium 8.6 (8.4-10.2) mg/dL Total Bilirubin 0.4 (0.2-1.3) mg/dL AST 14 (14-36) IU/L ALT 9 (<35) IU/L Alkaline Phosphatase 42 (38-126) U/L Total Protein 6.3 (6.3-8.2) g/dL Albumin 3.8 (3.5-5.0) g/dL Globulin 2.5 (1.7-4.1) g/dL Albumin/Globulin Ratio 1.5 (1.0-2.8) TSH 0.892 (0.47-4.68) uIU/mL Imaging Data US thyroid: Radiologist's Impression: IMPRESSION:? ? Slightly increased vascularity of the right thyroid lobe may represent inflammation from recent procedure versus thyroiditis. ? Multiple thyroid nodules as above.? Right thyroid lobe nodule meets criteria for biopsy.? This was reportedly done.? Recommend correlation with results. ? ? ACR TI-RADS definitions and recommendations:? TI-RADS 1 (benign): 0 points.? FNA not needed. TI-RADS 2 (not suspicious): 2 points.? FNA not needed. TI-RADS 3 (mildly suspicious): 3 points. * FNA if 2.5 cm or larger, follow up if 1.5 cm or larger (at 1, 3, and 5 years). TI-RADS 4 (moderately suspicious): 4-6 points.? * FNA if 1.5 cm or larger, follow up if 1 cm or larger (at 1, 2, 3, and 5 years).? TI-RADS 5 (highly suspicious): 7 points or more.? * FNA if 1 cm or larger, follow up if 0.5 cm or larger (every year for 5 years).? Dictated by: Ruben Martin D.O. on 11/24/2021 at 10:12 ? ? Approved by: Ruben Martin D.O. on 11/24/2021 at 10:21 ? MDM Narrative Medical decision making narrative: Patient feels somewhat better with the Toradol. Ultrasound is reassuring regarding acute abnormality. Discharge Plan Departure Patient Disposition: Home Clinical Impression: Thyroid nodule, Acute neck pain, Acute ear pain Activity Restrictions/Additional Instructions: No dangerous cause for your neck pain or ear pain is identified. The ear is completely normal on examination. I believe this is referred pain from her neck. No abscess or dangerous masses identified in the neck other than the thyroid nodules which she already knew about. For now I recommend ibuprofen 600 mg and Tylenol 1000 mg every 6 hours for pain. Plan on following up with your primary care doctor in the coming days for further assistance with pain management if needed. Follow-up for thyroid surgery as planned. The surgeon probably will when she did discontinue ibuprofen few days prior to surgery, please call their office to find out the specifics. Return to the emergency department for new or worsening symptoms such as difficulty swallowing or breathing or fever associated with neck pain Prescriptions: No Action phentermine 37.5 mg capsule 37.5 mg PO DAILY Rx Instructions: must administer 30 minutes before or 1-2 hours after breakfast cholecalciferol (vitamin D3) 1,250 mcg (50,000 unit) capsule 1,250 mcg PO QWEEK fluconazole [Diflucan] 150 mg tablet 150 mg PO ONCE Qty: 1 0RF Rx Instructions: as a single dose Referrals: Deandra Boyd PA-C [Primary Care Provider] -
[2021-11-24 09:58] LABS: Add Manual Diff / Slide Review NO; Basophils Absolute Auto 0 /uL (0-100); Basophils Percent Auto 0.7 % (0-2); Eosinophils Absolute Auto 100 /uL (0-450); Eosinophils Percent Auto 1.7 % (2-4); Hematocrit 37.7 % (36-46); Hemoglobin 12.9 g/dL (12.0-16.0); Lymphocytes Absolute Auto 1300 /uL (1100-4500); Lymphocytes Percent Auto 20.3 % (25-40); Mean Corpuscular HGB Conc 34.2 % (30-36); Mean Corpuscular Hemoglobin 30.5 PG (26-34); Mean Corpuscular Volume 89.3 fL (80-100); Monocytes Absolute Auto 400 /uL (0-900); Monocytes Percent Auto 5.6 % (3-14); Neutrophils Absolute Auto 4700 /uL (1500-7000); Neutrophils Percent Auto 71.7 % (50-75); Platelet Count 242 X10^3/uL (150-400); Red Blood Cell Count 4.22 X10^6/uL (4.0-5.2); White Blood Cell Count 6.5 X10^3/uL (4.5-11.0)
[2021-11-24 10:09] LABS: Alanine Aminotransferase 9 IU/L (<35); Albumin 3.8 g/dL (3.5-5.0); Albumin Globulin Ratio 1.5 (1.0-2.8); Alkaline Phosphatase 42 U/L (38-126); Aspartate Aminotransferase 14 IU/L (14-36); BUN Creatinine Ratio 15.9 (6-22); Bilirubin Total 0.4 mg/dL (0.2-1.3); Blood Urea Nitrogen 11 mg/dL (7-17); Calcium 8.6 mg/dL (8.4-10.2); Carbon Dioxide 28 mmol/L (22-32); Chloride 107 mmol/L (98-107); Estimated Glomerular Filt Rate > 60 mL/min (>60); Globulin 2.5 g/dL (1.7-4.1); Glucose 98 mg/dL (70-100); HEMOLYSIS < 15 (0-50); Potassium 3.7 mmol/L (3.4-5.1); Sodium 138 mmol/L (137-145); Total Protein 6.3 g/dL (6.3-8.2)
[2021-11-24] MEDS: SODIUM CHLORIDE 0.9% 1,000 ML 1000 ML IV (10:28)
[2021-11-24] MEDS: KETOROLAC 30 MG/ML VIAL 15 MG IV (10:29)
[2021-11-24 10:41] LABS: Thyroid Stimulating Hormone 0.892 uIU/mL (0.47-4.68)
== END 2021-11-24 12:42 | disposition home or self-care (01) ==
PROVIDERS: Emergency Provider Family Medicine Addiction Medicine; PCP Physician Assistant
DX: E04.1 Nontoxic single thyroid nodule (principal); M54.2 Cervicalgia; H92.02 Otalgia, left ear
CPT/HCPCS: 76536; 80053; 84443; 85025; 96361; 96374; 99283; 99284; J1885

== ENCOUNTER → 2021-12-24 10:12 | Outpatient (CLI) | payer OTHER, MEDICAID, SELFPAY ==
[2021-12-24 13:09] LABS: Free T3, Triiodothyronine Free 3.72 pg/mL (2.77-5.27); Free T4, Direct Thyroxine 1.26 ng/dL (0.78-2.19)
[2021-12-24 20:19] LABS: Follicle Stimulating Hormone 5.55 mIU/mL; Luteinizing Hormone 3.93 mIU/mL; Progesterone, Total 0.61 ng/mL
[2021-12-24 20:34] LABS: Estradiol, Total 48.3 pg/mL
[2021-12-25 05:21] LABS: Sex Hormone Binding Globulin 62.5 nmol/L (24.6-122.0); Thyroid Peroxidase Antibodies 13 IU/mL (0-34); Triiodothyronine T3 Total 125 ng/dL (71-180)
[2021-12-25 19:07] LABS: Anti Thyroglobulin Antibody <1.0 IU/mL (0.0-0.9)
[2021-12-31 23:27] LABS: Testosterone % Fr + Wkly bound 11.5 % (3.0-18.0); Testosterone Fr+Wkly bound 2.2 ng/dL (0.0-9.5); Testosterone, Total 19.5 ng/dL (.)
== END ==
PROVIDERS: PCP Family Medicine; Referring Provider Family Medicine; Visit Provider Family Medicine
DX: E28.2 Polycystic ovarian syndrome (principal); N92.0 Excessive and frequent menstruation with regular cycle; E04.1 Nontoxic single thyroid nodule
CPT/HCPCS: 36415; 82627; 82670; 83001; 83002; 84144; 84270; 84403; 84439; 84480; 84481; 86376; 86800

== ENCOUNTER → 2021-12-27 15:38 | Outpatient (CLI) | payer OTHER, MEDICAID, SELFPAY ==
[2021-12-27 16:15] LABS: COVID19 -Nasal RAPID Negative (Negative)
== END ==
PROVIDERS: PCP Family Medicine; Visit Provider Obstetrics & Gynecology
DX: Z20.822 Contact with and (suspected) exposure to COVID-19; Z01.812 Encounter for preprocedural laboratory examination
CPT/HCPCS: 87635; C9803

== ENCOUNTER 2021-12-30 06:44 | Day surgery (SDC) | payer OTHER, MEDICAID, SELFPAY ==
[2021-12-25 14:41] VITALS: BMI 27.6
[2021-12-30] VITALS (8 sets, daily range): BP systolic 100–115; BP diastolic 67–75; PULSE 72–89; RESP 16–28; TEMP 36.2–37.1; O2SAT 96–100; BMI 27.6
--- NOTE | 2021-12-30 | PATH_ITS ---
[facility] Accession Number: [id number] . 01 Material submitted: . endometrium - ENDOMETRIAL CURETTINGS . 01 Diagnosis: Endometrium, Curettings: Feature suggestive of benign endometrial polyp. Additional proliferative type endometrium. No atypical hyperplasia and no malignancy. [facility] 01/01/2022 1502 Local . 01 Electronically signed: . Paulette Moy MD, Pathologist NPI- [id number] . 01 Gross description: . ENDOMETRIAL CURETTINGS: Received in formalin are minute fragments of mucoid and hemorrhagic material measuring 0.7 x 0.7 x 0.3 cm in aggregate. Submitted in toto in 1 cassette. /DAVE 12/31/2021 0138 Local . 01 Pathologist provided ICD-10: N84.0 . 01 CPT . 139501 Specimen Comment: A courtesy copy of this report has been sent to [phone] Performed at: 01 [facility] [address] [place] [address], [place], [place] [id number] MD Alfred Cedillo MD Phone: [phone]
[2021-12-30] MEDS: LACTATED RINGERS 1,000 ML 42 ML IV (07:31)
--- NOTE | 2021-12-30 07:48 | PM.HP.1 ---
History of Present Illness History of Present Illness Date Patient Seen: 12/30/21 Time Patient Seen: 07:48 Chief complaint: HYSTEROSCOPY D&C Narrative: Patient is a 41-year-old 3 para 2 who presents for a D&C hysteroscopy and possible polypectomy due to menorrhagia. Patient History Medical History (Updated 12/25/21 @ 14:50 by Aan Thacker RN) Abnormal Pap smear of cervix (~2001) Chicken pox (~1986) COVID-19 (~04/2021) Foot pain (~1999) Low blood pressure Menorrhagia (~2020) Ovarian cyst (~2001) Shoulder pain (~1999) Surgical History Anesthesia History of dilatation and curettage S/P wisdom tooth extraction Status post section Family & Social History Family History Father Skin cancer Prostate cancer Sister Mental health problem Grandfather Cancer Grandmother Cancer Grandfather Cancer Diabetes mellitus Grandmother Mental health problem Social History: household members significant other,children Tobacco & Substance use: Tobacco type smokeless tobacco Smoking Status Former smoker alcohol intake never alcohol intake frequency other Substance Use Type does not use Meds Home Medications and Allergies Home Medications Medication Instructions Recorded Confirmed Type cholecalciferol (vitamin D3) 1,250 1,250 mcg PO QWEEK 11/12/21 12/30/21 History mcg (50,000 unit) capsule phentermine 37.5 mg capsule 37.5 mg PO DAILY 11/12/21 12/30/21 History fluticasone propionate 50 2 spray intranasal DAILY 12/30/21 12/30/21 History mcg/actuation nasal spray,suspension Allergies Allergy/AdvReac Type Severity Reaction Status Date / Time codeine AdvReac Intermediate Nausea Verified 12/30/21 07:27 Exam Vital Signs (past 8 hours): - 12/30/21 07:16 Temperature 97.6 F Pulse Rate 84 Respiratory Rate 18 Blood Pressure 100/67 Pulse Oximetry 96 Oxygen Delivery Method Room Air Oxygen Delivery Method Room Air Narrative Exam Narrative: HEENT: No thyromegaly, no anterior cervical or supraclavicular lymphadenopathy. Lungs:Clear to auscultation bilaterally, no wheezes. Cardiovascular: Regular rate and rhythm, no murmurs, rubs, or gallops. Abdomen: Well-healed Pfannenstiel scars. No hepatosplenomegaly. No masses palpable. External genitalia: Normal Vagina: Normal Cervix: Normal Bimanual exam: 8 Week size anteverted uterus. Mobile. No adnexal masses or tenderness Extremities: No edema Assessment & Plan Assessment & Plan narrative: Assessment: 41-year-old 3 para 2011 with menorrhagia that is impacting her quality of life Plan: D&C hysteroscopy with possible polypectomy The risks, benefits, and alternatives to the procedure were explained to the patient. The risks including bleeding, infection, and uterine perforation. She understands these risks and agrees to proceed. A full par Q was held and consent form was signed. COVID-19 COVID-19 status: Negative Result date/Date tested (Pos, Neg/Pending): 12/27/21 Time Spent With Patient Time with patient: less than 30 minutes Critical Care time: I spent a total of [] minutes of critical care time on this patient's care today; this time is exclusive of procedural time.
--- NOTE | 2021-12-30 07:50 | PM.PREOP ---
Pre-operative Note COVID-19 COVID-19 status: Negative Result date/Date tested (Pos, Neg/Pending): 12/27/21 Criteria for continued procedure: Deterioration of the patient's condition or overall health Interval Note History & Physical reviewed/Exam performed by Physician: Yes Changes to H&P: No H&P completed within 30 days and has changed as indicated here:: 12/30/21
--- NOTE | 2021-12-30 08:59 | PM.GYNOP.1 ---
Operative Date/Time/Diagnoses Date of procedure: 12/30/21 Time of procedure: 08:59 Pre-op diagnosis: Menorrhagia Post-op diagnosis: same Procedure & Clinicians Procedure: Procedures Operation Date: 12/30/21 07:45 Actual Procedure Side Surgeon p Hysteroscopy D&C Haley Liriano MD Indications: Menorrhagia Surgeon: Haley Liriano Anesthesia Type: General (LMA) Operative Notes Findings: 8 week size retroverted uterus Thickened endometrium throughout Both fallopian tube ostia observed Closure Type: not applicable Specimen(s): endometrial curettings Estimated blood loss (mL): 5 Blood products transfused: none Procedure in detail: After informed consent was obtained, the patient was taken to the operating room where she was placed in the dorsal supine position. After LMA general anesthesia was achieved, she was placed in the dorsal lithotomy position, and prepped and draped in the usual sterile fashion. A time-out was performed. A bivalve speculum was placed into the vagina and the anterior lip of the cervix was grasped with a single-tooth tenaculum. The cervical os was sequentially dilated to the # 8 Hegar dilator. The hysteroscope passed easily into the endometrial cavity in the retroverted uterus. Both fallopian tube ostia were observed. There were no polyps or fibroids. There was thickened endometrium throughout. The hysteroscope was removed from the uterus. Sharp curettage was performed yielding a large amount of endometrial curettings. The instruments removed from the uterus. Single-tooth tenaculum was removed from the anterior lip of the cervix. The bivalve speculum was removed from the vagina. Sponge, lap, and instrument counts were correct x2. The patient tolerated the procedure well, and was taken to PACU in stable condition. Complications: none Post-operative Condition: stable Disposition: PACU Plan for aftercare: Home after recovery
[2021-12-30] MEDS: OXYCODONE/ACETAMINOPHEN 5/325 TABLET 1 TAB PO (09:32)
--- NOTE | 2021-12-30 10:10 | SUR.OPER ---
12/30/[id number]-ilpgnud up/dressed self. iv out. vss. home instructions completed. pain tolerable. states no changes . tolerating fluids. Refused restroom. discharged to home to [facility]/car with all belongings.
== END 2021-12-30 10:11 | disposition home or self-care (01) ==
PROVIDERS: PCP Family Medicine; Referring Provider Obstetrics & Gynecology; Visit Provider Obstetrics & Gynecology
PROC: 0UDB8ZZ Extraction of Endometrium, Via Natural or Artificial Opening Endoscopic (ICD-10-PCS; CPT 58558; principal; 2021-12-30 07:45)
DX: N92.0 Excessive and frequent menstruation with regular cycle (principal); N84.0 Polyp of corpus uteri
CPT/HCPCS: 58558; 00952; 81025; J1100; J2250; J2405; J2704; J3010

== ENCOUNTER → 2022-01-14 09:20 | Outpatient (CLI) | payer OTHER, MEDICAID, SELFPAY ==
[2022-01-14 10:39] LABS: COVID19 -Nasal RAPID Negative (Negative)
== END ==
PROVIDERS: PCP Family Medicine; Visit Provider Surgery
DX: Z20.822 Contact with and (suspected) exposure to COVID-19 (principal); Z01.812 Encounter for preprocedural laboratory examination
CPT/HCPCS: 87635; C9803

== ENCOUNTER 2022-10-13 19:07 | Emergency (ER) | payer OTHER, MEDICAID, SELFPAY ==
[2022-10-13 19:12] VITALS: BP 117/64; PULSE 103; RESP 16; TEMP 36.8; O2SAT 100; BMI 24.3
--- NOTE | 2022-10-13 19:14 | DI.RAD.S_ITS ---
PROCEDURE: XR SHOULDER LT MIN 2V INDICATIONS: pain, no injury TECHNIQUE: 4 views of the shoulder were acquired. COMPARISON: None. FINDINGS: Bones: No fractures or dislocations. No suspicious bony lesions. Visualized ribs appear intact. Soft tissues: No suspicious soft tissue calcifications. IMPRESSION: No acute fracture. No osseous lesion. If symptoms and/or clinical suspicion for pathology persist, further assessment with repeat, or advanced imaging (e.g., CT, MRI, or bone scan) may be helpful for further assessment. Dictated by: Adan Babcock M.D. on 10/13/2022 at 19:47 Approved by: Adan Babcock M.D. on 10/13/2022 at 19:48
[2022-10-13 20:16] VITALS: PULSE 90
--- NOTE | 2022-10-14 05:06 | ED_ITS ---
HPI - Extremity Problem General Chief complaint: Extremity Problem,Nontraumatic Stated complaint: lt shoulder pain/feels out of place Time Seen by Provider: 10/13/22 19:11 Source: patient Mode of arrival: Ambulatory History of Present Illness HPI Narrative: 42-year-old female daily smoker states that she is been having trouble with her left shoulder for upwards of 20 years. She states that normally feels a bit numb and tingling over the lateral aspect of it and she is had MRIs and prior consultations without any significant findings. In the absence of any injury she states that she is been having significant pain in her shoulder for the past few days. She states that if she is upright it feels like it is falling out of place and symptoms seemed to improve when she lies flat. She has full range of motion but states that it hurts. She denies any numbness, tingling or weakness. She denies any head or neck pain or injury Related Data Home Medications Medication Instructions Recorded Confirmed cholecalciferol (vitamin D3) 1,250 1,250 mcg PO QWEEK 11/12/21 12/31/21 mcg (50,000 unit) capsule phentermine 37.5 mg capsule 37.5 mg PO DAILY 11/12/21 12/31/21 fluticasone propionate 50 2 spray intranasal DAILY 12/30/21 12/31/21 mcg/actuation nasal spray,suspension Previous Rx's Medication Instructions Recorded cyclobenzaprine 10 mg tablet 10 mg PO TID PRN muscle spasm #14 10/13/22 tabs hydrocodone 5 mg-acetaminophen 325 1 tab PO Q4-6H PRN pain #10 tabs 10/13/22 mg tablet Allergies Allergy/AdvReac Type Severity Reaction Status Date / Time codeine AdvReac Intermediate Nausea Verified 12/30/21 07:27 Review of Systems Review of Systems Narrative: GENERAL: Denies chills, fatigue, malaise, fever, sweats. HEENT: Denies sinus pain, ear pain, sore throat, difficulty swallowing, dizziness. RESPIRATORY: Denies dyspnea, cough, wheezing, hemoptysis, sputum. CARDIOVASCULAR: Denies chest pain, palpitations, orthopnea, edema, GASTROINTESTINAL: Denies nausea, vomiting, abdominal pain, diarrhea, constipation, melena. : Denies dysuria, frequency, incontinence, hematuria, urinary retention. MUSCULOSKELETAL: See HPI SKIN: Denies rash, skin lesions, or other NEUROLOGIC: See HPI PSYCHIATRIC: No concerning psychosocial issues. 12 point review of systems is negative except for those stated above Patient History Medical History Abnormal Pap smear of cervix (~2001) Chicken pox (~1986) COVID-19 (~04/2021) Ear pain Episode of syncope (10/02/21) Foot pain (~1999) Low blood pressure Menorrhagia (~2020) Ovarian cyst (~2001) Shoulder pain (~1999) Surgical History Anesthesia History of dilatation and curettage History of hysteroscopy (12/30/21) S/P wisdom tooth extraction Status post section Family History Father Skin cancer Prostate cancer Sister Mental health problem Grandfather Cancer Grandmother Cancer Grandfather Cancer Diabetes mellitus Grandmother Mental health problem Social History household members: significant other and children Smoking Status: Current every day smoker alcohol intake: never Smoking Status: Current every day smoker tobacco type: vaping alcohol intake frequency: other Substance Use Type: does not use Exam Narrative Exam Narrative: GEN: AOx3 and in mild distress EYES: Pupils are equal, round, and reactive to light and accommodation. Extraoccular muscles are intact bilaterally. There is no subconjunctival hemorrhage or exudate. CHEST: Lungs are clear to auscultation bilaterally and free of wheezes, rales, or rhonchi. Heart rate is regular rhythm, there are no murmurs, clicks, rubs, or gallops. There is no chest wall tenderness. ABD: Abdomen is soft and nontender. There is no guarding or rebound. Bowel sounds are normal in all 4 quadrants. There is no mass or organomegaly. EXT: No obvious deformity, full but painful range of motion of left shoulder, full strength, no measurable weakness, pulses and sensation intact SKIN: Warm, pink, and dry. No erythema or rash Initial Vital Signs Initial Vital Signs: Vital Signs Temperature 98.2 F 10/13/22 19:12 Pulse Rate 103 H 10/13/22 19:12 Respiratory Rate 16 10/13/22 19:12 Blood Pressure 117/64 10/13/22 19:12 Pulse Oximetry 100 10/13/22 19:12 Oxygen Delivery Method Room Air 10/13/22 19:12 Procedures Orthopedic Splinting/Casting Injury #1: Side: left Upper Extremity Injury Location: shoulder Upper Extremity Immobilizer: sling/shoulder immobilizer Post splinting neuro exam: intact Post splinting vascular exam: intact Placed by: Nursing MDM - Extremity (Nontraumatic) MDM Narrative Medical decision making narrative: [42] year old patient presents with shoulder pain Multiple etiologies for patient's symptoms considered including, but not limited to: [Rotator cuff injury versus dislocation versus fracture versus other] Prior Charts reviewed in our EMR Primary Historian: patient Imaging reviewed: No fracture or dislocation Patient's symptoms improved over duration of stay with above-stated therapies. Findings and discharge diagnosis discussed with patient/family followed by verbalization of understanding Return precautions discussed with patient/family whom verbalize understanding of diagnosis and plan Discharge Plan Departure Patient Disposition: Home Clinical Impression: Acute shoulder pain Instructions: DI for Shoulder Pain Activity Restrictions/Additional Instructions: *You have been diagnosed with [Shoulder Pain. Your history and physical exam are reassuring and as we discussed x-ray shows no evidence of dislocation or other abnormal finding.] *What to do: *Please continue to take your regular medications as directed. [x ] New medication prescriptions sent to your pharmacy: [[facility] ] [ ] New medication written as a paper prescription [ ] No new medications given *Please follow up with your primary care provider in 2-3 days, call for an appointment. Let them know you were seen in the Emergency Department and that we ask that you be seen in follow up. We will electronically transmit a record of today's note if your PCP is in our system * as we discussed I have included contact information for local orthopedist, it seems reasonable to follow up with them given the relative chronicity of your shoulder problems. They may talk with you about various options including injections, physical therapy, MRI, etc.. *Return to Emergency Department if you should have any new, worsening or concerning symptoms, such as [fever greater than 101 F, shaking chills, worsening pain, persistent vomiting or other bothersome symptoms] You have been prescribed a short course of narcotic medications. These are potentially dangerous and addictive medications that should be used carefully. While on these medications you cannot drive or operate heavy machinery. Additionally, you cannot sign legal documents or perform any duties such as this. Many people get constipated on narcotic medications so it would be advisable to discuss stool softeners with the pharmacist when you pharmacy picking tech your prescription. Please understand that we cannot provide further refills of narcotics or controlled substances through the ED and your pain management will need to be through your Primary Care Provider Prescriptions: New cyclobenzaprine 10 mg tablet 10 mg PO TID PRN (Reason: muscle spasm) Qty: 14 0RF hydrocodone-acetaminophen 5-325 mg tablet 1 tab PO Q4-6H PRN (Reason: pain) Qty: 10 0RF No Action phentermine 37.5 mg capsule 37.5 mg PO DAILY Rx Instructions: must administer 30 minutes before or 1-2 hours after breakfast cholecalciferol (vitamin D3) 1,250 mcg (50,000 unit) capsule 1,250 mcg PO QWEEK fluticasone propionate 50 mcg/actuation spray,suspension 2 spray INTRANASAL DAILY Patient Comments: instill 1 spray into each nostril once daily for 30 DAYS Referrals: Haily Espinosa MD [Physician] - Abbey Da Silva RN [Primary Care Provider] - Stand Alone Forms: Patient Portal/API
== END 2022-10-13 20:16 | disposition home or self-care (01) ==
PROVIDERS: Emergency Provider Emergency Medicine; PCP Nurse Practitioner Family
DX: M25.512 Pain in left shoulder (principal)
CPT/HCPCS: 73030; 99283

== ENCOUNTER 2023-10-07 12:35 | Emergency (ER) | payer OTHER, MEDICAID, SELFPAY ==
[2023-10-07 12:44] VITALS: BP 117/58; PULSE 102; RESP 15; TEMP 36.9; O2SAT 98; BMI 25.1
--- NOTE | 2023-10-07 12:51 | PC.NURSE ---
Pt states she had a bug on her left upper thigh that she thinks is still in her skin and she needs help getting it out and she said she was installing a screen door when she said it slipped and went into her left hand pointer finger. redness noted at both sites but no obvious foreign objects.
--- NOTE | 2023-10-07 12:52 | ED_ITS ---
HPI - Wound/Laceration General Chief Complaint: Wound/Laceration Stated Complaint: foreign object in leg Time Seen by Provider: 10/07/23 12:51 Source: patient Mode of arrival: Ambulatory History of Present Illness HPI narrative: 43-year-old female complains of left anterior proximal thigh skin wound, has concerns there may be organic material still left in the wound, this morning she went to the [employer] [place], and on exit had a long appearing insect of some kind imbedded in her left anterior proximal thigh, removed, she and her significant other apparently dug with tweezers trying to get a like material removed. She does not feel that this arthropod was in the shape or size of a tick. Bite was apparently not painful. She does not feel like it was a centipede. Not large enough for snake. Not in shape of spider or beetle. She requests excision of suspected retained organic material from the wound. NKDA. Last tetanus shot greater than 5 years ago. She also complains of left index finger foreign body sensation, after working with a window/door screen, seems concerned there may be some retained fibers in this area. Related Data Home Medications Medication Instructions Recorded Confirmed cholecalciferol (vitamin D3) 1,250 1,250 mcg PO QWEEK 11/12/21 12/31/21 mcg (50,000 unit) capsule phentermine 37.5 mg capsule 37.5 mg PO DAILY 11/12/21 12/31/21 fluticasone propionate 50 2 spray intranasal DAILY 12/30/21 12/31/21 mcg/actuation nasal spray,suspension Previous Rx's Medication Instructions Recorded cyclobenzaprine 10 mg tablet 10 mg PO TID PRN muscle spasm #14 10/13/22 tabs hydrocodone 5 mg-acetaminophen 325 1 tab PO Q4-6H PRN pain #10 tabs 10/13/22 mg tablet cephalexin 500 mg capsule 500 mg PO QID 7 days #28 caps 10/07/23 Allergies Allergy/AdvReac Type Severity Reaction Status Date / Time codeine AdvReac Intermediate Nausea Verified 10/07/23 12:43 Patient History Medical History Abnormal Pap smear of cervix (~2001) Chicken pox (~1986) COVID-19 (~04/2021) Ear pain Episode of syncope (10/02/21) Foot pain (~1999) Low blood pressure Menorrhagia (~2020) Ovarian cyst (~2001) Shoulder pain (~1999) Surgical History Anesthesia History of dilatation and curettage History of hysteroscopy (12/30/21) S/P wisdom tooth extraction Status post section Family History Father Skin cancer Prostate cancer Sister Mental health problem Grandfather Cancer Grandmother Cancer Grandfather Cancer Diabetes mellitus Grandmother Mental health problem Social History household members: significant other and children Smoking Status: Current every day smoker alcohol intake: never Smoking Status: Current every day smoker tobacco type: vaping alcohol intake frequency: other Substance Use Type: does not use Exam Narrative Exam Narrative: GENERAL: Well-developed patient, in mild distress. HEAD: Atraumatic. Normocephalic. EYES: Pupils equal round and reactive. Extraocular motions intact. No scleral icterus. No injection or drainage. ENT: Nose without bleeding, purulent drainage. Throat without erythema, tonsillar hypertrophy or exudate. Airway patent. NECK: Trachea midline. Non tender CARDIOVASCULAR: Regular rate and rhythm without murmurs, gallops, or rubs. RESPIRATORY: Clear to auscultation. Breath sounds equal bilaterally. No wheezes, rales, or rhonchi. GASTROINTESTINAL: Abdomen soft, non-tender, nondistended. EXTREMITIES: Left anterior proximal thigh with 1.5 cm erythematous lesion, lateral aspect small shallow ulcer, no palpable or visible foreign body material. No urticaria. Left lateral index finger with small puncture, no palpable or visible foreign body, no redness or edema to the affected digit, no lymphangitic streaking, no discharge. BACK: Nontender without deformity or crepitance. No flank tenderness. NEURO: AOx3. SKIN: No rash or erythema of visible areas Initial Vital Signs Initial Vital Signs: Vital Signs Temperature 98.5 F 10/07/23 12:44 Pulse Rate 102 H 10/07/23 12:44 Respiratory Rate 15 10/07/23 12:44 Blood Pressure 117/58 L 10/07/23 12:44 Pulse Oximetry 98 10/07/23 12:44 Oxygen Delivery Method Room Air 10/07/23 12:44 [place] [facility] [place] Procedure: Excisional biopsy left anterior proximal thigh skin lesion, per patient request, concern for retained organic material from arthropod injury. Verbal consent for procedure. Local field block 1% lidocaine with epinephrine, proximally 6 cc. Number 15 blade excisional biopsy down through skin layer, 2 fascial plane, minimal bleeding. Closed with 4-0 nylon x3 interrupted simple sutures. Minimal blood loss. Tolerated well. Specimen sent for pathology evaluation. Side (if applicable): left Location: Proximal anterior thigh skin Complications: none Course Orders Ordered: ED Orders 10/07/23 13:21 XR finger LT min 2V Stat Discontinued Medications Bacitracin (Bacitracin Oint 0.9 Gm Pckt) 1 applic TOP NOW ONE Stop: 10/07/23 13:27 Last Admin: 10/07/23 13:41 Dose: 1 applic Documented By: BELLA Cephalexin HCl (Cephalexin 250 Mg Capsule) 500 mg PO NOW ONE Stop: 10/07/23 13:26 Last Admin: 10/07/23 13:39 Dose: 500 mg Documented By: BELLA Diphtheria/Tetanus/Acell Pertussis (Tet,Diph,Pertuss(Acell),Vac/Pf 0.5 Ml Syringe) 0.5 ml IM .ONCE ONE Stop: 10/07/23 13:42 Last Admin: 10/07/23 13:42 Dose: 0.5 ml Documented By: BELLA Lidocaine/Epinephrine (Lidocaine 1% W/Epi) 4 ml INJ INTRA-OP ONE Stop: 10/07/23 13:25 Last Admin: 10/07/23 13:42 Dose: Not Given Documented By: BELLA Tetanus/Diphtheria Toxoids (Tetanus Diphtheria Toxoids 0.5 Ml Vial) 0.5 ml IM .ONCE ONE Stop: 10/07/23 13:28 Last Admin: 10/07/23 13:40 Dose: Not Given Documented By: BELLA Vital Signs Vital signs: Vital Signs - 8 hr 10/07/23 12:44 10/07/23 14:43 Temperature 98.5 F Pulse Rate 102 H 89 Respiratory Rate 15 16 Blood Pressure 117/58 L 114/66 Pulse Oximetry 98 100 Oxygen Delivery Method Room Air Room Air MDM - Wound/Laceration Imaging Data Extremity x-ray #1: Radiologist's Impression: [address] [address] XRay Report Signed Patient: Eb Sargent MR#: [id number] : 1980 Acct:[id number] Age/Sex: 43 / F Date of Service: 10/07/23 Loc: ED Accession Number: [id number] Procedure: XR finger LT min 2V Ordering Provider: Holland Benito MD PROCEDURE: XR FINGER LT MIN 2V INDICATIONS: FB sensation screen door L index TECHNIQUE: AP hand, 2 views of the 2nd finger(s) acquired. COMPARISON: None. FINDINGS: Bones: No fractures or dislocations. No suspicious bony lesions. Soft tissues: No suspicious soft tissue calcifications. No radiopaque foreign body. IMPRESSION: No radiopaque foreign body. Dictated by: Nga Dunn M.D. on 10/07/2023 at 14:32 Approved by: Nga Dunn M.D. on 10/07/2023 at 14:32 MDM Narrative Medical decision making narrative: Patient with concern for possible retained organic tissue from arthropod envenomation this morning, we discussed excisional biopsy, she would like to proceed. See separate procedure note. Tolerated well. Specimen sent to pathology. Regarding left index finger foreign body sensation while working with a screen, I could not see or palpate any foreign body, though there was tenderness the punctum site distal IP area left index finger, x-ray screening requested. No obvious foreign body seen on x-ray. It is possible to have retained foreign body material that is non radiopaque however. Tetanus update ordered. P.o. Keflex 1st dose antibiotic given in the emergency department, prescription for further oral antibiotic course of cephalexin. Wound check and pathology for review in 2 3 days with PCP advised. Consider orthopedic surgery consultation for possible retained foreign body left index finger Discharge Plan Departure Patient Disposition: Home Clinical Impression: Status post excisional biopsy, Sensation of foreign body in finger, Foreign body sensation, other site Activity Restrictions/Additional Instructions: Arthropod envenomation left anterior proximal thigh after [facility] [employer], apparently not felt to be tic like in appearance or size, not particularly painful, seems less likely a sent a paid injury, however apparently there was concern about imbedded foreign material, prompting you/family to attempt foreign body removal. Concerned there may be further organic material in the wound, requests for excisional biopsy removal of that affected tissue area. Verbal consent for procedure, local anesthesia, small Ellipta forearm skin sample jose yao around the visible wound edges, the depth of 2-3 mm, 2 soft tissue plane, no obvious foreign material residual. Specimen sent for pathology review. Wound closed with nylon sutures. Antibiotics started, prescription sent for further course of antibiotic. Wound check advised in 2-3 days with your regular provider. Also check pathology report at that time. You also had concern about foreign body sensation left index finger, possible window/door screen retained fibers/fragment, x-rays negative for any visible foreign body, consider orthopedic surgery follow up if any wound exploration indicated. Contact information provided for orthopedic surgery on-call. Check wound at the time of your thigh excisional biopsy wound check as well. Take antibiotics as directed. Return earlier to this/nearest emergency department for any change worsening symptoms or any concerns prior Prescriptions: New cephalexin 500 mg capsule 500 mg PO QID 7 Days Qty: 28 0RF No Action phentermine 37.5 mg capsule 37.5 mg PO DAILY Rx Instructions: must administer 30 minutes before or 1-2 hours after breakfast cholecalciferol (vitamin D3) 1,250 mcg (50,000 unit) capsule 1,250 mcg PO QWEEK fluticasone propionate 50 mcg/actuation spray,suspension 2 spray INTRANASAL DAILY Patient Comments: instill 1 spray into each nostril once daily for 30 DAYS cyclobenzaprine 10 mg tablet 10 mg PO TID PRN (Reason: muscle spasm) Qty: 14 0RF hydrocodone-acetaminophen 5-325 mg tablet 1 tab PO Q4-6H PRN (Reason: pain) Qty: 10 0RF Referrals: Zander Garcia MD [Physician] - Abbey Da Silva ARNP RN [Primary Care Provider] - Stand Alone Forms: Patient Portal/API
[2023-10-07] MEDS: LIDOCAINE 1% W/EPI 20 ML (13:03)
--- NOTE | 2023-10-07 13:19 | PATH_ITS ---
[facility] Accession Number: [id number] No. of containers..01 Tissue . 01 Material submitted: . thigh - L UPPER THIGH . 01 Diagnosis: L UPPER THIGH, BIOPSY: Central area with necrosis, necrotic debris, and mild acute inflammation. . Note: While nonspecific, the changes could be secondary to a prior arthropod bite. No definite arthropod body parts are identified grossly or in the initial and deeper levels examined in an effort to better define this process. Other diagnostic considerations could include local chemical or physical trauma, among others. PAS stain is negative for fungal hyphae. Clinicopathologicl correlation is advised for definitive diagnosis. MRV 10/12/2023 1615 Local . 01 Electronically signed: . Raina Pandey MD, Dermatopathologist NPI- [id number] . 01 Gross description: . Received fresh and subsequently placed in formalin, per client, with two patient identifiers and skin tissue, left upper thigh, is an unoriented ellipse of skin, 1.0 x 0.5 cm by 0.2 cm thick. There is a small defected located near one tip measuring 0.1 cm in diameter. No arthropod or object identified on the skin surface. The margin is inked blue, and the specimen is serially sectioned into four slices with no foreign object or insect identified on the cut surface. Submitted entirely as follows: . A1: Tips. A2: Remaining slices. ([id number]) /MRV 10/08/2023 1451 Local . 01 Pathologist provided ICD-10: R23.9 . 01 CPT . 028466, [id number] Performed at: [address] [address], [place], [place] [id number] MD Alfred Cedillo MD Phone: [phone]
--- NOTE | 2023-10-07 13:21 | DI.RAD.S_ITS ---
PROCEDURE: XR FINGER LT MIN 2V INDICATIONS: FB sensation screen door L index TECHNIQUE: AP hand, 2 views of the 2nd finger(s) acquired. COMPARISON: None. FINDINGS: Bones: No fractures or dislocations. No suspicious bony lesions. Soft tissues: No suspicious soft tissue calcifications. No radiopaque foreign body. IMPRESSION: No radiopaque foreign body. Dictated by: Nga Dunn M.D. on 10/07/2023 at 14:32 Approved by: Nga Dunn M.D. on 10/07/2023 at 14:32
[2023-10-07] MEDS: cephALEXin 250 MG CAPSULE 500 MG PO (13:39)
[2023-10-07] MEDS: BACITRACIN OINT 0.9 GM PCKT 1 APPLIC TOP (13:41)
[2023-10-07] MEDS: TET,DIPH,PERTUSS(ACELL),VAC/PF 0.5 ML SYRINGE IM (13:42)
[2023-10-07 14:43] VITALS: BP 114/66; PULSE 89; RESP 16; O2SAT 100
== END 2023-10-07 14:46 | disposition home or self-care (01) ==
PROVIDERS: Emergency Provider Emergency Medicine; PCP Nurse Practitioner Family
DX: R09.A9 Foreign body sensation, other site (principal); Z23 Encounter for immunization
CPT/HCPCS: 11106; 73140; 90471; 99283; 90715

== ENCOUNTER 2023-12-26 19:43 | Emergency (ER) | payer OTHER, MEDICAID, SELFPAY ==
[2023-12-26 19:44] VITALS: BP 129/58; PULSE 94; RESP 18; TEMP 36.6; O2SAT 100; BMI 23.8
== END 2023-12-26 21:19 | disposition left against medical advice (07) ==
PROVIDERS: Emergency Provider Emergency Medicine; PCP Nurse Practitioner Family
CPT/HCPCS: 99281

== ENCOUNTER 2024-03-09 07:40 | Emergency (ER) | payer OTHER, MEDICAID, SELFPAY ==
--- NOTE | 2024-03-09 07:49 | ED.EXTPRO ---
HPI - Extremity Problem General Chief complaint: Extremity Injury, Lower Stated complaint: punctured r foot, swelling Time Seen by Provider: 03/09/24 07:48 History of Present Illness HPI Narrative: Patient here with partner for complaints of right foot pain and swelling. Patient dropped a pair of tweezers 2 days ago and it injured the top of her right foot. Since then has pain redness and swelling. No fever chills. No discharge. Tetanus up-to-date, September 2023. Denies does not want a test. Denies any allergies to antibiotics. Foot and ankle exposed Related Data Home Medications Medication Instructions Recorded Confirmed cholecalciferol (vitamin D3) 1,250 1,250 mcg PO QWEEK 11/12/21 12/31/21 mcg (50,000 unit) capsule phentermine 37.5 mg capsule 37.5 mg PO DAILY 11/12/21 12/31/21 fluticasone propionate 50 2 spray intranasal DAILY 12/30/21 12/31/21 mcg/actuation nasal spray,suspension Previous Rx's Medication Instructions Recorded cyclobenzaprine 10 mg tablet 10 mg PO TID PRN muscle spasm #14 10/13/22 tabs hydrocodone 5 mg-acetaminophen 325 1 tab PO Q4-6H PRN pain #10 tabs 10/13/22 mg tablet doxycycline monohydrate 100 mg 100 mg PO BID #14 caps 03/09/24 capsule Allergies Allergy/AdvReac Type Severity Reaction Status Date / Time codeine AdvReac Intermediate Nausea Verified 12/26/23 19:44 Review of Systems Review of Systems Narrative: GENERAL: Negative chills, fatigue, malaise, fever, sweats. HEENT: Negative sinus pain, ear pain, sore throat RESPIRATORY: Negative dyspnea, cough CARDIOVASCULAR: Negative chest pain, palpitations GASTROINTESTINAL: Negative nausea, vomiting, abdominal pain : Negative dysuria, frequency, hematuria MUSCULOSKELETAL: Positive muscle or bony pain SKIN: Negative rash, skin lesions, positive skin injury NEUROLOGIC: Negative weakness, numbness ROS Unobtainable: All systems reviewed & are unremarkable except as noted in HPI and below Patient History Medical History Abnormal Pap smear of cervix (~2001) Chicken pox (~1986) COVID-19 (~04/2021) Ear pain Episode of syncope (10/02/21) Foot pain (~1999) Low blood pressure Menorrhagia (~2020) Ovarian cyst (~2001) Shoulder pain (~1999) Surgical History Anesthesia History of dilatation and curettage History of hysteroscopy (12/30/21) S/P wisdom tooth extraction Status post section Family History Father Skin cancer Prostate cancer Sister Mental health problem Grandfather Cancer Grandmother Cancer Grandfather Cancer Diabetes mellitus Grandmother Mental health problem Social History household members: significant other and children Smoking Status: Current every day smoker alcohol intake: never Smoking Status: Current every day smoker tobacco type: vaping alcohol intake frequency: other Substance Use Type: does not use Exam Narrative Exam Narrative: GENERAL: in no distress, not toxic not dyspneic HEAD: Normocephalic. EYES: Pupils equal round EXTREMITIES: No gross deformities. Examination right foot. Small puncture went to mid forefoot dorsally. There is surrounding erythema without induration no discharge. No palpable abscess. No red streaking. Foot otherwise warm soft pink. Brisk cap refills light touch intact to foot and toes. Mild tenderness to the puncture site. NEURO: AOx4. SKIN: Warm and dry PSYCH: Not anxious, is cooperative Initial Vital Signs Initial Vital Signs: Vital Signs Temperature 97.9 F 03/09/24 07:57 Pulse Rate 99 H 03/09/24 07:57 Respiratory Rate 15 03/09/24 07:57 Blood Pressure 122/71 03/09/24 07:57 Pulse Oximetry 99 03/09/24 07:57 Oxygen Delivery Method Room Air 03/09/24 07:57 Course Orders Ordered: Discontinued Medications Doxycycline Hyclate (Doxycycline Hyclate 100 Mg Tablet) 100 mg PO NOW ONE Stop: 03/09/24 07:49 Last Admin: 03/09/24 08:16 Dose: 100 mg Documented By: CAMERON Ibuprofen (Ibuprofen 400 Mg Tablet) 800 mg PO NOW ONE Stop: 03/09/24 07:49 Last Admin: 03/09/24 08:16 Dose: 800 mg Documented By: CAMERON Vital Signs Vital signs: Vital Signs - 8 hr 03/09/24 07:57 Temperature 97.9 F Pulse Rate 99 H Respiratory Rate 15 Blood Pressure 122/71 Pulse Oximetry 99 Oxygen Delivery Method Room Air [facility] - Extremity (Nontraumatic) Imaging Data Extremity x-ray #1: Radiologist's Impression: [address] [address] XRay Report Signed Patient: Eb Sargent MR#: [id number] : 1980 Acct:[id number] Age/Sex: 43 / F Date of Service: 03/09/24 Loc: ED Accession Number: [id number] Procedure: XR foot RT min 3V Ordering Provider: Theron Mendez MD PROCEDURE: XR FOOT RT MIN 3V INDICATIONS: Injury/pain/swelling TECHNIQUE: 3 views of the foot were acquired. COMPARISON: None. FINDINGS: Bones: No fractures or dislocations. Mild hallux valgus angulation of the 1st MTP with joint with medial bunion formation. No suspicious bony lesions. Soft tissues: No tibiotalar joint effusion. Achilles tendon appears normal. IMPRESSION: No acute osseous abnormality. If pain persists with conservative management, consider repeat x-ray in 10-14 days or cross-sectional imaging. Dictated by: Lan Aguero M.D. on 03/09/2024 at 8:14 Approved by: Lan Aguero M.D. on 03/09/2024 at 8:21 [facility] Narrative Medical decision making narrative: Patient here with partner for complaints of right foot pain and swelling. Patient dropped a pair of tweezers 2 days ago and it injured the top of her right foot. Since then has pain redness and swelling. No fever chills. No discharge. Tetanus up-to-date, September 2023. Denies does not want a test. Denies any allergies to antibiotics. Foot and ankle exposed After history and exam doxycycline ibuprofen x-ray right foot crutches postop shoe [facility] Medical records reviewed: No recent visit for this complaint Differential considered: Includes but not limited to cellulitis retained foreign body necrotizing fasciitis abscess Lab Test results independently reviewed as above. Pertinent findings: None indicated at this time Imaging studies independently reviewed: X-ray right foot no acute finding Consultations: None indicated Treatments: Doxycycline ibuprofen Re-evaluations: 8:40 a.m.. Updated patient results. They are reassuring. Pain is controlled. Return precautions reviewed. Not toxic at discharge. She desires discharge home. Discussion: Appropriate for discharge home exam is reassuring imaging reassuring. Antibiotics have been started. No blood work indicated. Not toxic no fever. No discharge. Pain is controlled. Return precautions reviewed and she desires discharge home. Diagnosis: Right foot puncture wound Discharge Plan Departure Patient Disposition: Home Clinical Impression: Puncture wound of foot Qualifiers: Encounter type: initial encounter Laterality: right Qualified Code(s): S91.331A - Puncture wound without foreign body, right foot, initial encounter Instructions: DI for Wound Infection Activity Restrictions/Additional Instructions: X-ray of your foot is reassuring. You are being treated for early skin infection from your puncture wound. Please continue antibiotics, prescription has been sent to your pharmacy. Use crutches and provided shoe for comfort. See family doctor in a week for re-evaluation. Return if worse if any questions or concerns. Use cool packs to the foot 20 minutes at a time as needed for pain swelling. Please keep your foot elevated when at rest to reduce swelling. Prescriptions: New doxycycline monohydrate 100 mg capsule 100 mg PO BID Qty: 14 0RF No Action phentermine 37.5 mg capsule 37.5 mg PO DAILY Rx Instructions: must administer 30 minutes before or 1-2 hours after breakfast cholecalciferol (vitamin D3) 1,250 mcg (50,000 unit) capsule 1,250 mcg PO QWEEK fluticasone propionate 50 mcg/actuation spray,suspension 2 spray INTRANASAL DAILY Patient Comments: instill 1 spray into each nostril once daily for 30 DAYS cyclobenzaprine 10 mg tablet 10 mg PO TID PRN (Reason: muscle spasm) Qty: 14 0RF hydrocodone-acetaminophen 5-325 mg tablet 1 tab PO Q4-6H PRN (Reason: pain) Qty: 10 0RF Referrals: Abbey Da Silva ARNP, RN [Primary Care Provider] - Stand Alone Forms: Patient Portal/API/Survey
[2024-03-09 07:57] VITALS: BP 122/71; PULSE 99; RESP 15; TEMP 36.6; O2SAT 99; BMI 23.6
[2024-03-09] MEDS: IBUPROFEN 400 MG TABLET 800 MG PO (08:16)
[2024-03-09] MEDS: DOXYCYCLINE HYCLATE 100 MG TABLET PO (08:16)
[2024-03-09 09:00] VITALS: RESP 17
== END 2024-03-09 09:00 | disposition home or self-care (01) ==
PROVIDERS: Emergency Provider Emergency Medicine; PCP Nurse Practitioner Family
DX: S91.331A Puncture wound without foreign body, right foot, initial encounter (principal); W22.8XXA Striking against or struck by other objects, initial encounter
CPT/HCPCS: 73630; 99283